=== PATIENT | male | born 1960 | race African-American/Black ===

== ENCOUNTER 2017-09-29 11:41 | Inpatient (IN) | payer OTHER ==
[~2017-09-29] VITALS: Ht 180.3 cm; Wt 80.7 kg
[2017-09-29] VITALS (21 sets, daily range): BP systolic 105–136; BP diastolic 42–82
--- NOTE | ~2017-09-29 | P ---
[facility] [place] [address] PROCEDURE REPORT Name: JUANY NG Room #: 404-[facility] IN M.R.#: [id number] Admission: 09/29/17 Attend Phys: Anibal Valles MD Discharge: Date of : 64 Report #: [id number] THIS REPORT FOR: //name// CC: Anibal Valles MD [facility] physician/PCP DATE OF SERVICE: 10/02/2017 PROCEDURE PERFORMED: Colonoscopy with bleeding control. HISTORY OF PRESENT ILLNESS: The patient is a 56-year-old male with a history of end-stage liver disease, ETOH abuse, ascites, and recent hospitalization at [facility] for GI bleed. Apparently, he had 2 upper endoscopies there with banding of each time. He also had a colonoscopy that reportedly had AVMs that were treated with endoclip placement in the proximal colon and in the cecum. He presented with recurrent GI bleed. He initially thought this was possibly due to recurrent esophageal varices; however, he has had bright red blood per rectum and no elevation in his BUN, suggesting possible lower bleed. Plan is for colonoscopy. DESCRIPTION OF PROCEDURE: The risks and benefits of the procedure were explained to the patient, those risks including but not limited to bleeding, perforation, the risk of sedation. He understood these risks and gave informed consent. Sedation was given using propofol per anesthesia. Next, a digital rectal exam was initially performed, which was normal. Next, using a standard [employer] colonoscope, the scope was placed in the patient's anus and advanced under direct vision to the cecum. The overall prep was excellent. As I approached the cecum, the first endoclip was noted in the proximal ascending colon. There was no ulceration or bleeding. No signs of bleeding. The scope was advanced into the cecum. A second endoclip was noted in the cecum and just to the side of this area was what appeared to be a fresh adherent clot. This was treated with endoclip placement without difficulty. There was no bleeding after endoclip placement. There was no evidence of blood throughout the exam today. The scope was then slowly withdrawn. No other abnormalities were noted in the transverse, descending and sigmoid colon. The rectal mucosa was normal. The scope was then withdrawn and the procedure terminated. The patient tolerated the procedure well. IMPRESSION: 1. Fresh adherent clot in cecum, likely source of recent gastrointestinal bleed. This was treated with endoclip placement. 2. Two previous endoclip placed noted, one in the cecum, one in the proximal ascending colon. No signs of bleeding. [facility] [address] [place] [address] PROCEDURE REPORT Name: JUANY NG Room #: 404-[facility] IN M.R.#: [id number] Admission: 09/29/17 Attend Phys: Anibal Valles MD Discharge: Date of : 64 Report #: [id number] RECOMMENDATIONS: Observe the patient post-procedure. Thank you for allowing me to participate in his care. <ELECTRONICALLY SIGNED> By: Venkata Perez MD 10/03/17 2110 1251 11 Venkata Perez MD /nt
--- NOTE | ~2017-09-29 | EKG ---
[place] [address] [facility] [place] [address] ELECTROCARDIOGRAM REPORT Name: JUANY NG Room #: 237-P ADM IN M.R.#: [id number] Admission: 09/29/17 Attend Phys: Anibal Valles MD Discharge: Date of : 64 Report #: [id number] THIS REPORT FOR: //name// [facility] ED Test Date: 2017-09-29 Test Time: 12:30:47 Pat Name: JUANY NG Department: Room: 237 Gender: M Telephone Installer: CHELO : 1960 Requested By: Live Ruvalcaba Order Number: [id number] MD: Rick Hernandez Measurements Intervals [place] Rate: 87 P: 83 VT: 155 QRS: 36 QRSD: 95 T: 49 QT: 366 QTc: 441 Interpretive Statements Sinus rhythm Anteroseptal infarct, old No previous ECG available for comparison Electronically Signed On 09-30-2017 8:59:13 [employer] by Rick Hernandez [email or web address] <ELECTRONICALLY SIGNED> By: Rick Hernandez MD, [facility] 09/30/17 0859 1230 1230 Rick Hernandez MD, FACC /EPI
[2017-09-29 12:32] LABS: MCV 97.2 fL (80.0-100.0); RBC 1.57 mil/uL (4.50-6.00); WBC 17.7 thou/uL (4.0-11.0)
[2017-09-29 12:34] LABS: MCH 32.7 pg (26.0-34.0); MCHC 33.6 g/dL (28.0-37.0); RDW 21.7 % (10.5-14.5)
[2017-09-29 12:36] LABS: HEMATOCRIT 15.3 % (42.0-52.0); HEMOGLOBIN 5.1 gm/dL (14.0-18.0)
[2017-09-29 12:44] LABS: ANION GAP 9 mmol/L (7-16); BUN 13 mg/dL (7-18); CALCIUM 6.8 mg/dL (8.5-10.1); CHLORIDE 110 mmol/L (98-107); CO2 21 mmol/L (21-32); GLUCOSE 113 mg/dL (74-106); POTASSIUM 4.3 mmol/L (3.5-5.1); SODIUM 140 mmol/L (136-145)
[2017-09-29 12:52] LABS: ALBUMIN 1.6 g/dL (3.4-5.0); DIRECT BILIRUBIN < 0.1 mg/dL (<0.1-0.3); SGOT 90 U/L (15-37); SGPT 41 U/L (30-65); TOTAL BILIRUBIN 0.5 mg/dL (<0.1-1.0); TROPONIN-I < 0.04 ng/mL (<0.06)
[2017-09-29 12:53] LABS: INR 1.3
[2017-09-29 21:45] LABS: HEMOGLOBIN 6.5 gm/dL (14.0-18.0)
[2017-09-29 21:48] LABS: HEMATOCRIT 19.8 % (42.0-52.0)
[2017-09-30] VITALS (41 sets, daily range): BP systolic 92–145; BP diastolic 39–115
[2017-09-30 04:33] LABS: HEMATOCRIT 23.1 % (42.0-52.0); HEMOGLOBIN 7.7 gm/dL (14.0-18.0); MCH 30.4 pg (26.0-34.0); MCHC 33.4 g/dL (28.0-37.0); RBC 2.54 mil/uL (4.50-6.00); RDW 17.8 % (10.5-14.5); WBC 17.1 thou/uL (4.0-11.0)
[2017-09-30 04:34] LABS: ALBUMIN 1.4 g/dL (3.4-5.0); CALCIUM 6.5 mg/dL (8.5-10.1); CREATININE 1.3 mg/dL (0.7-1.3); POTASSIUM 4.4 mmol/L (3.5-5.1); TOTAL BILIRUBIN 2.1 mg/dL (<0.1-1.0); TOTAL PROTEIN 4.2 g/dL (6.4-8.2)
[2017-09-30 04:43] LABS: PLATELET COUNT 171 thou/uL (150-400)
[2017-09-30 05:33] LABS: ANISOCYTOSIS 1+; MACROCYTES 1+
[2017-09-30 16:10] LABS: HEMATOCRIT 22.9 % (42.0-52.0); HEMOGLOBIN 7.6 gm/dL (14.0-18.0)
[2017-09-30 18:04] LABS: MAGNESIUM 1.5 mg/dL (1.8-2.4); POTASSIUM 4.2 mmol/L (3.5-5.1)
[2017-10-01] VITALS (7 sets, daily range): BP systolic 114–165; BP diastolic 58–83
[2017-10-01 05:23] LABS: HEMOGLOBIN 6.7 gm/dL (14.0-18.0)
[2017-10-01 05:27] LABS: HEMATOCRIT 20.1 % (42.0-52.0); RBC 2.18 mil/uL (4.50-6.00); WBC 18.8 thou/uL (4.0-11.0)
[2017-10-01 05:28] LABS: ABSOLUTE NEUTROPHILS 13.5 thou/uL (1.4-8.2); BASOPHILS 0.6 % (0.0-2.0); EOSINOPHILS 2.2 % (0.0-3.0); LYMPHOCYTES 13.9 % (24.0-44.0); MCH 30.8 pg (26.0-34.0); MCHC 33.4 g/dL (28.0-37.0); MONOCYTES 11.5 % (1.0-8.0); PLATELET COUNT 188 thou/uL (150-400); POLYS 71.8 % (36.0-66.0)
[2017-10-01 05:32] LABS: CALCIUM 6.5 mg/dL (8.5-10.1); CREATININE 1.2 mg/dL (0.7-1.3)
[2017-10-01 05:45] LABS: ALBUMIN 1.4 g/dL (3.4-5.0); DIRECT BILIRUBIN 0.5 mg/dL (<0.1-0.3); TOTAL PROTEIN 4.4 g/dL (6.4-8.2)
[2017-10-02] VITALS (16 sets, daily range): BP systolic 106–145; BP diastolic 50–96
[2017-10-02 03:26] LABS: BASOPHILS 0.7 % (0.0-2.0); EOSINOPHILS 1.9 % (0.0-3.0); HEMATOCRIT 24.4 % (42.0-52.0); HEMOGLOBIN 8.2 gm/dL (14.0-18.0); LYMPHOCYTES 11.7 % (24.0-44.0); MCHC 33.8 g/dL (28.0-37.0); MCV 91.9 fL (80.0-100.0); MONOCYTES 11.4 % (1.0-8.0); PLATELET COUNT 162 thou/uL (150-400); POLYS 74.3 % (36.0-66.0); RBC 2.66 mil/uL (4.50-6.00); RDW 16.5 % (10.5-14.5); WBC 16.2 thou/uL (4.0-11.0)
[2017-10-02 03:35] LABS: CREATININE 0.9 mg/dL (0.7-1.3); POTASSIUM 3.8 mmol/L (3.5-5.1)
[2017-10-03] VITALS (8 sets, daily range): BP systolic 119–149; BP diastolic 62–80
[2017-10-04 04:00] VITALS: BP 124/59
[2017-10-04 04:09] LABS: HEMATOCRIT 25.8 % (42.0-52.0); HEMOGLOBIN 8.7 gm/dL (14.0-18.0); MCHC 33.6 g/dL (28.0-37.0); MCV 95.2 fL (80.0-100.0); RBC 2.71 mil/uL (4.50-6.00); RDW 20.9 % (10.5-14.5); WBC 12.1 thou/uL (4.0-11.0)
[2017-10-04 04:15] LABS: ALBUMIN 1.5 g/dL (3.4-5.0); CALCIUM 7.3 mg/dL (8.5-10.1); CREATININE 0.8 mg/dL (0.7-1.3); PHOSPHORUS 2.9 mg/dL (2.5-4.9); POTASSIUM 3.6 mmol/L (3.5-5.1)
[2017-10-04 08:00] VITALS: BP 132/66
[2017-10-04 16:00] VITALS: BP 175/75
[2017-10-04 20:07] VITALS: BP 122/60
[2017-10-05 04:29] VITALS: BP 124/68
[2017-10-05 05:48] LABS: HEMATOCRIT 23.5 % (42.0-52.0); HEMOGLOBIN 7.9 gm/dL (14.0-18.0); MCH 32.3 pg (26.0-34.0); MCHC 33.8 g/dL (28.0-37.0); MCV 95.6 fL (80.0-100.0); RBC 2.46 mil/uL (4.50-6.00); RDW 20.8 % (10.5-14.5)
[2017-10-05 06:01] LABS: ALBUMIN 1.4 g/dL (3.4-5.0); CALCIUM 7.3 mg/dL (8.5-10.1); CREATININE 0.7 mg/dL (0.7-1.3); POTASSIUM 3.9 mmol/L (3.5-5.1); TOTAL BILIRUBIN 0.6 mg/dL (<0.1-1.0); TOTAL PROTEIN 5.3 g/dL (6.4-8.2)
[2017-10-05 07:20] VITALS: BP 115/60
[2017-10-05] MEDS ORDERED: ALDACTONE25 MG PO (08:42)
[2017-10-05] MEDS ORDERED: LACTULOSE20 GM/30 M PO (08:42)
[2017-10-05] MEDS ORDERED: VITAMIN B-1100 M2 PO (08:42)
[2017-10-05] MEDS ORDERED: XIFAXAN550 MG PO (08:42)
[2017-10-05] MEDS ORDERED: PROPRANOLOL 1010 MG PO (08:42)
[2017-10-05 09:36] VITALS: BP 115/60
== END 2017-10-05 11:20 | disposition home or self-care (01) | DRG 378 ==
LOC: ER 11:41 → EROBS 13:07 → ICU 13:07 → 3W 13:55 → ICU 15:02 → 4N 10-03 16:59 → ENTRNSPT 10-05 11:11 → 4N 10-05 11:20
PROVIDERS: Emergency Medicine; Hospitalist; Internal Medicine Gastroenterology; Specialist
PROC: 02HV33Z Insertion of Infusion Device into Superior Vena Cava, Percutaneous Approach (ICD-10-PCS; principal; 2017-09-29)
PROC: B548ZZA Ultrasonography of Superior Vena Cava, Guidance (ICD-10-PCS; principal; 2017-09-29)
PROC: 0W3P8ZZ Control Bleeding in Gastrointestinal Tract, Via Natural or Artificial Opening Endoscopic (ICD-10-PCS; 2017-10-02)
PROC: 30233N1 Transfusion of Nonautologous Red Blood Cells into Peripheral Vein, Percutaneous Approach (ICD-10-PCS; 2017-10-03)
DX: K92.1 Melena (principal); E46 Unspecified protein-calorie malnutrition; D62 Acute posthemorrhagic anemia; K72.90 Hepatic failure, unspecified without coma; I10 Essential (primary) hypertension; D72.829 Elevated white blood cell count, unspecified; F10.10 Alcohol abuse, uncomplicated; F17.210 Nicotine dependence, cigarettes, uncomplicated; K70.31 Alcoholic cirrhosis of liver with ascites; K70.11 Alcoholic hepatitis with ascites; E88.09 Other disorders of plasma-protein metabolism, not elsewhere classified; Q23.9 Congenital malformation of aortic and mitral valves, unspecified; Z68.24 Body mass index [BMI] 24.0-24.9, adult
CPT/HCPCS: 10078; 10790; 27000; 62110